=== PATIENT | female | born 1985 | race Caucasian/White ===

== ENCOUNTER 2016-03-21 14:56 | Inpatient (IN) | payer OTHER ==
[~2016-03-21] VITALS: Ht 165.1 cm; Wt 122.1 kg
[2016-03-21 15:12] VITALS: Ht 165.1 cm; Wt 122.1 kg
[2016-03-21] MEDS ORDERED: GLYB1.252 PO (15:14)
[2016-03-21] MEDS ORDERED: TAP5 PO (15:25)
[2016-03-21] MEDS ORDERED: METHYLERGONOVINE 0.2 MG INJ IM PRN (15:30)
[2016-03-21] MEDS ORDERED: CARBOPROST 250 MCG INJ IM PRN (15:30)
[2016-03-21] MEDS ORDERED: MISOPROSTOL 200 MCG TAB PR PRN (15:30)
[2016-03-21] MEDS ORDERED: OXYTOCIN 30 UNITS/LR 500 ML IV PRN (15:30)
[2016-03-21] MEDS ORDERED: LACTATED RINGER'S 1,000 ML IV SCH (15:59)
[2016-03-21 16:00] VITALS: BP 140/81; PULSE 72; RESP 18
[2016-03-21 16:03] LABS: EOSINOPHILS # 0.1 10^3/ul (0.0-0.5); EOSINOPHILS % 0.7 % (0.0-7.0); HEMATOCRIT 41.9 % (37.0-47.0); HEMOGLOBIN 14.5 g/dl (12.0-16.0); LYMPHOCYTES # 2.6 10^3/ul (0.8-2.9); LYMPHOCYTES % 25.2 % (15.0-51.0); MEAN CORPUSCULAR HGB CONC 34.6 g/dl (32.0-37.0); MEAN CORPUSCULAR VOLUME 83.7 fl (82.0-101.0); MEAN PLATELET VOLUME 9.2 fl (7.4-10.4); MONOCYTE # 0.6 10^3/ul (0.3-0.9); MONOCYTES % 5.9 % (0.0-11.0); NEUTROPHIL # 7.1 10^3/ul (1.6-7.5); NEUTROPHILS % 68.2 % (39.0-77.0); PLATELET COUNT 179 10^3/UL (140-440); RED BLOOD COUNT 5.01 10^6/ul (4.20-5.40); RED CELL DISTRIBUTION WIDTH 14.4 % (11.5-14.5); UNCORRECTED WBC 10.4 10^3/ul (4.8-10.8); WHITE BLOOD COUNT 10.4 10^3/ul (4.8-10.8)
[2016-03-21 16:05] LABS: CONDITION 1
[2016-03-21 16:13] LABS: INR 0.92; PARTIAL THROMBOPLASTIN TIME 28.1 Sec (25.0-35.0); PROTIME 12.4 Sec (12.2-14.2)
[2016-03-21] MEDS ORDERED: DEXTROSE 5%-LR 1,000 ML IV SCH (16:23)
[2016-03-21] MEDS ORDERED: AMPICILLIN 2 GM/NS (PMX) 100 ML ONE (16:30)
[2016-03-21] MEDS ORDERED: AMPICILLIN 2 GM/NS (PMX) 100 ML IVPB ONE (16:30)
[2016-03-21] MEDS ORDERED: morphine SULFATE/PF (10 MG/10 ML) INJ ONE (16:43)
[2016-03-21] MEDS ORDERED: ONDANSETRON 4 MG INJ IV STA (17:22)
[2016-03-21] MEDS ORDERED: CITRIC ACID/NA CITRATE 30 ML CUP PO ONE (17:30)
[2016-03-21] MEDS ORDERED: METOCLOPRAMIDE 10 MG INJ IM ONE (17:30)
[2016-03-21] MEDS ORDERED: METOCLOPRAMIDE 10 MG INJ IV ONE (18:00)
[2016-03-21 18:02] LABS: ALBUMIN 3.7 g/dl (3.3-4.9); POTASSIUM 4.3 mmol/L (3.5-5.1)
[2016-03-21 18:04] LABS: BILIRUBIN,INDIRECT 0.2 mg/dl (0-1.1); BILIRUBIN,TOTAL 0.2 mg/dl (0.2-1.3); CREATININE 0.52 mg/dl (0.44-1.00)
[2016-03-21 18:05] LABS: CALCIUM 9.5 mg/dl (8.4-10.2); TOTAL PROTEIN 7.4 g/dl (6.1-8.1); URIC ACID 5.4 mg/dl (3.1-7.9)
--- NOTE | 2016-03-21 18:21 | PREOPHP ---
DATE OF ADMISSION: 03/21/2016 HISTORY OF PRESENT ILLNESS: A 30-year-old female 1, para 0, estimated delivery 04/02/2016 at 38 weeks and 2 days is admitted for primary section due to twin . PAST MEDICAL HISTORY: Hyperthyroidism. COURSE: Significant for twin and gestational diabetes. FAMILY HISTORY: Hypothyroidism. ALLERGIES: NO KNOWN ALLERGIES. PHYSICAL EXAMINATION: VITAL SIGNS: The patient is afebrile. Vital signs stable. HEAD, NECK, AND CHEST: Within normal limits. ABDOMEN: Soft, nontender, and gravid. EXTREMITIES: Within normal limits. NEUROLOGIC: Within normal limits. IMPRESSION: 1. at 38 weeks and 2 days with twins. 2. Gestational diabetes. 3. Hyperthyroidism. PLAN: Delivery by primary section. Risks, benefits, and alternatives of procedure were explained to the patient. The patient said she understood and gave informed consent for the procedure. Dictated By: AMELIE FLOWERS/GINA Conf#: [id number] DID#: [id number]
[2016-03-21] MEDS ORDERED: PHENYLephrine (100 MCG/ML) 5ML SYG ONE (18:30)
[2016-03-21] MEDS ORDERED: METOCLOPRAMIDE 10 MG INJ ONE (18:31)
[2016-03-21] MEDS ORDERED: OXYTOCIN 10 UNIT INJ ONE ×2 (18:31)
[2016-03-21] MEDS ORDERED: ONDANSETRON 4 MG INJ ONE (18:31)
[2016-03-21] MEDS ORDERED: KETOROLAC 30 MG INJ ONE (18:32)
[2016-03-21] MEDS ORDERED: DEXAMETHASONE 4 MG/ML 1 ML INJ ONE (18:32)
[2016-03-21] MEDS ORDERED: MEPERIDINE 100 MG INJ ONE (18:52)
[2016-03-21] MEDS ORDERED: morphine (1 MG/ML) 10ML SYRINGE IV PRN ×3 (19:30)
[2016-03-21] MEDS ORDERED: ONDANSETRON 4 MG INJ IV PRN (19:30)
[2016-03-21] MEDS ORDERED: NALBUPHINE HCL (10 MG/1 ML) INJ IV PRN (19:30)
[2016-03-21] MEDS ORDERED: ALBUMIN HUMAN 5% 250 ML IV PRN (19:30)
[2016-03-21] MEDS ORDERED: HYDROmorphONE 1 MG/ML SYG IV PRN ×2 (19:30)
[2016-03-21] MEDS ORDERED: DIPHENHYDRAMINE 50 MG INJ IV PRN ×2 (19:30)
[2016-03-21] MEDS ORDERED: morphine 4 MG/ML VIAL IV PRN (19:30)
[2016-03-21] MEDS ORDERED: HYDROmorphONE (0.2 MG/ML) 10ML SYG IV PRN ×3 (19:30)
[2016-03-21] MEDS ORDERED: HYDROCODONE/APAP (5/325) TAB PO PRN (19:30)
[2016-03-21] MEDS ORDERED: EPHEDrine SULFATE 50 MG/5 ML SYG IV PRN (19:30)
[2016-03-21] MEDS ORDERED: NALOXONE (0.4 MG/ML) INJ IV PRN (19:30)
[2016-03-21] MEDS ORDERED: morphine 2 MG INJ IV PRN (19:30)
[2016-03-21] MEDS ORDERED: MEPERIDINE 25 MG INJ IV PRN (19:30)
[2016-03-21] MEDS ORDERED: ACETAMINOPHEN 500 MG TAB PO PRN (19:30)
[2016-03-21] MEDS: CEFAZOLIN 2 GM/50 ML (PMX) 50 ML IV SCH ×2 (19:34→20:53)
--- NOTE | 2016-03-21 19:51 | OPR ---
DATE OF OPERATION: 03/21/2016 PREOPERATIVE DIAGNOSES: at 38 weeks and 2 days with twins, gestational diabetes, hyperthy roidism. POSTOPERATIVE DIAGNOSES: at 38 weeks and 2 days with twins, gestational diabetes, hyperth yroidism. OPERATION PERFORMED: Primary low transverse section. SURGEON: Amelie Angel MD POWER SWEEPER OPERATOR: Megan Meza MD ANESTHESIA: Spinal. ANESTHESIOLOGIST: Rayshawn Stein MD PROCEDURE: The patient was taken to the operating room and placed on the operating table. After bautista ccessful spinal anesthesia was given, the patient was placed in supine position. The area was prepa red and draped in the usual sterile fashion. Spinal anesthesia was tested and was satisfactory. Us ing a scalpel, Pfannenstiel incision was made about 2 fingerbreadths above the symphysis pubis. The incision was carried to the fascia. The fascia was incised and extended bilaterally with Gore scis sors. Two Kiki's were used to separate the fascia from the muscle. The muscle was dissected down to peritoneum. The peritoneum was bluntly entered. Using a scalpel, a transverse incision was mad e in the lower segment of the uterus. Upon entering the uterine cavity, bandage scissors were inser davon to extend the incision bilaterally, curved up. Twin A baby boy was delivered from cephalic pres entation. After suctioning clear of amniotic fluid, the baby was handed off to the team in attendance. Apgars were 8 and 9. Twin B baby boy was delivered from cephalic presentation. After suctioning clear of amniotic fluid, the baby was handed off to the team in attendance. Ap gars were 9 and 9. The placenta was delivered without difficulty. The uterus was closed with #1 Mo nocryl continuous locked. After assuring hemostasis, both ovaries and tubes were inspected, all loo ked normal. The peritoneal cavity was irrigated with warm saline. The peritoneum was closed with 2 -0 Vicryl continuous. The fascia was closed with #1 Vicryl continuous in 2 segments. Subcutaneous tissue was reapproximated with 2-0 chromic. The skin was closed with kendall. ESTIMATED BLOOD LOSS: 800 mL. COMPLICATIONS: None. COUNTS: All counts were correct. Dictated By: AMELIE ANGEL MD GD/NTS Conf#: [id number] [facility]#: [id number]
[2016-03-21 21:47] LABS: ADD UMIC YES; URINE BILIRUBIN (Dip) NEGATIVE (NEGATIVE); URINE BLOOD (Dip) 1+ (NEGATIVE); URINE COLOR LT. YELLOW (YELLOW); URINE GLUCOSE (Dip) NEGATIVE (NEGATIVE); URINE KETONES (Dip) 15 (NEGATIVE); URINE LEUKOCYTE ESTERASE (Dip) NEGATIVE (NEGATIVE); URINE NITRITE (Dip) NEGATIVE (NEGATIVE); URINE TOTAL PROTEIN (Dip) NEGATIVE (NEGATIVE); URINE UROBILINOGEN (Dip) 0.2 E.U./dL (0.1-1.0)
[2016-03-21 21:56] LABS: SQUAMOUS EPITHELIAL CELL,UR FEW
--- NOTE | 2016-03-22 00:20 | DELSUM ---
Delivery Summary A-C Datetime Report Generated by CPN: 03/22/2016 00:20 DELIVERY PERSONNEL Host/Hostess Head: Delgadillo, Delfina MATERNAL INFORMATION Delivery Anesthesia: Spinal Medications in Delivery: SEE ANES. RECORDS Estimated Blood Loss (ml): 800 Placenta Cultured: Yes Maternal Complications: Other Other Maternal Complications: A2DM; HYPERTHYROIDISM LABOR SUMMARY EDC: 04/02/2016 00:00 No. Babies in Womb: 2 Attempted: No Labor Anesthesia: Intrathecal LABOR INFORMATION Reason for Induction: Not Applicable Oxytocin: N/A Group B Beta Strep: Positive Antibiotics # of Doses: 2 Antibiotics Time of Last Dose: 181 Steroids Given: None Reason Steroids Not Administered: Not Applicable MEMBRANES Membranes Rupture Method: Artificial Rupture of Membranes: 03/21/2016 18:40 Length of Rupture (hr): 0.02 Amniotic Fluid Color: Clear Amniotic Fluid Amount: Moderate Amniotic Fluid Odor: None STAGES OF LABOR Stage 3 hr: 0 Stage 3 min: 4 CSECTION DELIVERY Primary Indication: Multiple Gestation Secondary Indication: N/A CSection Urgency: Elective CSection Incidence: Primary Labor: No Labor Elective: N/A CSection Incision: Lower Uterine Transverse BABY A INFORMATION Infant Delivery Date/Time: 03/21/2016 18:41 Method of Delivery: Born in Route : No : N/A Forceps: N/A Vacuum Extraction: N/A Shoulder Dystocia : N/A SHOULDER DYSTOCIA BABY A Infant Delivery Date/Time: 03/21/2016 18:41 PRESENTATION/POSITION BABY A Presentation: Cephalic Cephalic Presentation: Vertex Breech Presentation: N/A PLACENTA INFORMATION BABY A Placenta Delivery Time : 03/21/2016 18:45 Placenta Method of Delivery: Manual Removal Placenta Status: Delivered SCORES BABY A Heart Rate 1 min: >100 bpm Resp Effort 1 min: Good Cry Reflex Irritability 1 min: Cough/Sneeze/Pulls Away Muscle Tone 1 min: Active Motion Color 1 min: Blue/Pale Resuscitation Effort 1 min: Tactile Stimulation SCORE 1 MIN: 8 Heart Rate 5 min: >100 bpm Resp Effort 5 min: Good Cry Reflex Irritability 5 min: Cough/Sneeze/Pulls Away Muscle Tone 5 min: Active Motion Color 5 min: Body [place], Extremit Blue Resuscitation Effort 5 min: Tactile Stimulation SCORE 5 MIN: 9 INFANT INFORMATION BABY A Gestational Age at Delivery: 38.2 Gestational Status: Early Term- 37- 38.6 Weeks Infant Outcome : Liveborn Condition : Stable Sex: Male IDENTIFICATION/MEDS BABY A ID Band Number: [id number] ID Band Location: Right Leg; Left Arm Sensor Applied: Yes Sensor Number: [id number] Sensor Location : Cord Clamp Vitamin K Given : Not Given Erythromycin Given: Not Given WEIGHT/LENGTH BABY A Infant Birthweight (gm): 3010 Weight (lb): 6 Infant Weight (oz): 10 Infant Length (in): 18.50 Infant Length (cm): 46.99 CORD INFORMATION BABY A No. Cord Vessels: 3 Nuchal Cord : Around Neck x1, Loose Cord Blood Taken: Yes Infant Suction: Mouth; Nose; Pharynx ASSESSMENT BABY A Infant Complications: None Physical Findings at Delivery: Within Normal Limits Respirations: Appears Normal Director Of Training/ALS Called : No Infant Care By: NICU TEAM Transferred To: Remains with Mother BABY B INFORMATION Infant Delivery Date/Time: 03/21/2016 18:42 Method of Delivery : Born in Route : No : N/A Forceps : N/A Vacuum Extraction: N/A Shoulder Dystocia : N/A SHOULDER DYSTOCIA BABY B Delivery Date/Time: 03/21/2016 18:42 PRESENTATION/POSITION BABY B Presentation : Cephalic Cephalic Position : Vertex Breech Position: N/A ROM/PLACENTA INFO BABY B Rupture of Membranes: 03/21/2016 18:42 Length of Rupture (hr): 0.00 Placenta Delivery Time : 03/21/2016 18:45 Placenta Method of Delivery: Manual Removal Placental Status : Delivered SCORES BABY B Heart Rate 1 min: >100 bpm Resp Effort 1 min: Good Cry Reflex Irritability 1 min: Cough/Sneeze/Pulls Away Muscle Tone 1 min: Active Motion Color 1 min: Body [place], Extremit Blue Resuscitation Effort 1 min: Tactile Stimulation SCORE 1 MIN: 9 Heart Rate 5 min: >100 bpm Resp Effort 5 min: Good Cry Reflex Irritability 5 min: Cough/Sneeze/Pulls Away Muscle Tone 5 min: Active Motion Color 5 min: Body [place], Extremit Blue Resuscitation Effort 5 min: Tactile Stimulation SCORE 5 MIN: 9 INFORMATION BABY B Gestational Age at Delivery: 38.2 Gestational Status : Early Term- 37- 38.6 Weeks Outcome : Liveborn Condition : Stable Sex : Male IDENTIFICATION/MEDS BABY B ID Band Number : [id number] ID Band Location : Right Leg; Left Arm Sensor Applied: Yes Sensor Number : [id number] Sensor Location : Cord Clamp Vitamin K Given : Not Given Erythromycin Given : Not Given WEIGHT/LENGTH BABY B Infant Birthweight (gm): 2905 Infant Weight (lb) : 6 Weight (oz): 6 Infant Length (in): 18.50 Length (cm): 46.99 CORD INFORMATION BABY B No. Cord Vessels : 3 Nuchal Cord : N/A Cord Blood Taken : Yes Infant Suction : Mouth; Nose ASSESSMENT BABY B Complications : None Physical Findings at Delivery: Within Normal Limits Infant Respirations : Appears Normal Director Of Training/ALS Called : No Care By : MANJULA LOPEZripening room attendant To: Remains with Mother
[2016-03-22] MEDS ORDERED: CARBOPROST 250 MCG INJ IM PRN (01:00)
[2016-03-22] MEDS ORDERED: MISOPROSTOL 200 MCG TAB PR PRN (01:00)
[2016-03-22] MEDS ORDERED: LANOLIN 7 GM TUBE TOP PRN (01:00)
[2016-03-22] MEDS ORDERED: OXYTOCIN 30 UNITS/LR 500 ML IV PRN (01:00)
[2016-03-22] MEDS ORDERED: METHYLERGONOVINE 0.2 MG INJ IM PRN (01:00)
[2016-03-22] MEDS: OXYTOCIN 30 UNITS/LR 500 ML IV SCH ×2 (03:01→04:35)
[2016-03-22 04:04] VITALS: BP 112/69; PULSE 88; RESP 18
[2016-03-22] MEDS: LACTATED RINGER'S 1,000 ML IV SCH ×3 (06:54→14:55)
[2016-03-22 07:59] LABS: BASOPHILS % 0.1 % (0.0-2.0); EOSINOPHILS % 0.2 % (0.0-7.0); HEMATOCRIT 35.8 % (37.0-47.0); HEMOGLOBIN 12.5 g/dl (12.0-16.0); LYMPHOCYTES # 1.7 10^3/ul (0.8-2.9); LYMPHOCYTES % 12.6 % (15.0-51.0); MEAN CORPUSCULAR HEMOGLOBIN 29.5 pg (29.0-33.0); MEAN CORPUSCULAR VOLUME 84.3 fl (82.0-101.0); MEAN PLATELET VOLUME 9.6 fl (7.4-10.4); MONOCYTE # 0.7 10^3/ul (0.3-0.9); MONOCYTES % 5.4 % (0.0-11.0); NEUTROPHIL # 11.2 10^3/ul (1.6-7.5); NEUTROPHILS % 81.7 % (39.0-77.0); PLATELET COUNT 170 10^3/UL (140-440); RED BLOOD COUNT 4.24 10^6/ul (4.20-5.40); RED CELL DISTRIBUTION WIDTH 14.3 % (11.5-14.5); UNCORRECTED WBC 13.7 10^3/ul (4.8-10.8); WHITE BLOOD COUNT 13.7 10^3/ul (4.8-10.8)
[2016-03-22 08:00] VITALS: BP 98/53; PULSE 72; RESP 18
[2016-03-22 08:03] LABS: CONDITION 1
[2016-03-22] MEDS: SENNA/DOCUSATE NA (8.6MG/50MG) TAB PO SCH ×2 (09:27→21:12)
[2016-03-22] MEDS: METHIMAZOLE 5 MG TAB PO SCH (09:27)
[2016-03-22 12:30] VITALS: BP 98/54; PULSE 65; RESP 18
[2016-03-22] MEDS: KETOROLAC 30 MG INJ IV PRN ×2 (12:30→17:46)
[2016-03-22 16:00] VITALS: BP_SYST 109; BP_SYST 121; BP_DIAS 64; BP_DIAS 69; PULSE 70; PULSE 78; RESP 18
[2016-03-22] MEDS ORDERED: OXYCODONE/ACETAMINOPHEN (5/325) TAB PO PRN (18:00)
[2016-03-22 20:00] VITALS: BP 105/56; PULSE 72; RESP 18
[2016-03-22] MEDS: IBUPROFEN 800 MG TAB PO SCH (22:00)
--- NOTE | 2016-03-22 22:01 | CONS ---
Date/Time of Note Date/Time of Note DATE: 03/22/16 TIME: 21:57 Consultation Date/Type/Reason Admit Date/Time Mar 21, 2016 at 14:56 Initial Consult Date 03/21/16 Type of Consultation: Anesthesia Reason for Consultation Twin for Elective 24 HR Interval Summary Free Text/Dictation Patient is a 30 year old female with Twin scheduled for Elective C- Section. Spinal anesthesia was used and intrathecal Duramorph was given for post -op pain control. Patient is doing well, pain is well controlled, no itching nausea or vomiting. No apnea reported. No sensory or motor deficit. Vital signs are stable and patient is afebrile. Patient will be followed up by her primary team. Exam/Review of Systems Vital Signs Vitals Vital Signs Date Time Temp Pulse Resp B/P Pulse Ox O2 Delivery O2 Flow Rate FiO2 03/22/16 16:00 98.7 78 18 109/69 Room Air 03/22/16 15:10 97 21 Intake and Output 03/21/16 03/21/16 03/22/16 15:00 23:00 07:00 Intake Total 625 ml 500 ml Output Total 250 ml Balance 375 ml 500 ml Results Result Diagram: 03/22/16 0635 03/21/16 1530 Results 24 hrs Laboratory Tests Test 03/22/16 06:35 Basophils # 0.0 Basophils % 0.1 Eosinophils # 0.0 Eosinophils % 0.2 Hematocrit 35.8 L Hemoglobin 12.5 Lymphocytes # 1.7 Lymphocytes % 12.6 L Mean Corpuscular Hemoglobin 29.5 Mean Corpuscular Hemoglobin Concent 35.0 Mean Corpuscular Volume 84.3 Mean Platelet Volume 9.6 Monocytes # 0.7 Monocytes % 5.4 Neutrophils # 11.2 H Neutrophils % 81.7 H Nucleated Red Blood Cells # 0.0 Nucleated Red Blood Cells % 0.0 Platelet Count 170 Red Blood Count 4.24 Red Cell Distribution Width 14.3 White Blood Count 13.7 #H Medications Medications Current Medications Lactated Ringer's (Lr) 1,000 ml @ 125 mls/hr Q8H IV Last administered on t 14:55; Admin Dose 125 MLS/HR; Start 03/22/16 at 00:35 Oxycodone/ Acetaminophen (Percocet (5/ 325)) 1 tab Q4H PRN PO PAIN LEVEL 4-6; Start 03/22/16 at 18:00 Oxycodone/ Acetaminophen (Percocet (5/ 325)) 2 tab Q4H PRN PO PAIN LEVEL 7-10; Start 03/22/16 at 18:00 Ibuprofen (Motrin) 800 mg Q8 PO ; Start 03/22/16 at 22:00 Simethicone (Mylicon) 160 mg Q8H PRN PO DISTENSION/GAS/BLOATING; Start 03/22/16 at 01:00 Senna/Docusate Sodium (Senokot-S) 1 tab BID PO Last administered on 03/22/16 21 :12; Admin Dose 1 TAB; Start 03/22/16 at 09:00 Diphtheria/ Tetanus/Acell Pertussis 0.5 ml 0.5 ml ONCE ONCE IM* ; Start 03/24/16 at 09:00; Stop 03/24/16 at 09:01 Oxytocin/Lactated Ringer's 500 ml @ 0 mls/hr ONCE PRN IV For Hemorrhage Management; Start 03/22/16 at 01:00 Methylergonovine Maleate (Methergine) 0.2 mg ONCE PRN IM VAGINAL BLEEDING; Start 03/22/16 at 01:00 Carboprost Tromethamine (Hemabate) 250 mcg ONCE PRN IM VAGINAL BLEEDING; Start 03/22/16 at 01:00 Misoprostol (Cytotec) 1,000 mcg ONCE PRN IL VAGINAL BLEEDING; Start 03/22/16 at 01:00 Methimazole (Tapazole) 5 mg DAILY PO Last administered on 03/22/16 09:27; Admin Dose 5 MG; Start 03/22/16 at 09:00 MARTI MOSQUEDA MD Mar 22, 2016 22:01
--- NOTE | 2016-03-22 23:03 | PN ---
Date/Time of Note Date/Time of Note DATE: 03/22/16 TIME: 23:00 OB Subjective Subjective Subjective No complaint. OB Objective Objective Objective Afebrile VSS Abdomen: WNL OB Assessment/Plan Reason for admission: other Other Assessment: POD #1 Stable Other plan: Ambulate Advance diet. AMELIE AGUAYO MD Mar 22, 2016 23:03
[2016-03-22] MEDS: OXYCODONE/ACETAMINOPHEN (5/325) TAB PO PRN (23:33)
[2016-03-23] MEDS: OXYCODONE/ACETAMINOPHEN (5/325) TAB PO PRN ×3 (03:27→19:58)
[2016-03-23 04:00] VITALS: BP 112/65; PULSE 72; RESP 18
[2016-03-23] MEDS: IBUPROFEN 800 MG TAB PO SCH ×3 (06:40→22:00)
[2016-03-23 08:15] VITALS: BP 107/52; PULSE 69
[2016-03-23] MEDS: METHIMAZOLE 5 MG TAB PO SCH (09:58)
[2016-03-23] MEDS: SENNA/DOCUSATE NA (8.6MG/50MG) TAB PO SCH ×2 (09:58→19:58)
[2016-03-23 15:45] VITALS: BP 112/68; PULSE 77; RESP 18
--- NOTE | 2016-03-23 19:45 | QN ---
Documentation Comment No complaint. Afebrile VSS Abdomen soft POD #2 Stable Continue present care. AMELIE AGUAYO MD Mar 23, 2016 19:44
[2016-03-23 20:00] VITALS: BP 118/75; PULSE 83; RESP 18
[2016-03-24] MEDS: OXYCODONE/ACETAMINOPHEN (5/325) TAB PO PRN ×3 (01:26→13:54)
--- NOTE | 2016-03-24 03:54 | DS ---
DATE OF ADMISSION: 03/21/2016 DATE OF DISCHARGE: 03/24/2016 ADMITTING DIAGNOSES: at 38 weeks and 2 days with twins, gestational diabetes and hyperthy roidism. HISTORY: A 30-year-old female 1, para 0 at the time of admission, para 1-0-0-2, at the time of discharge, at 38 weeks and 2 days, was admitted for primary section due to her twin int rauterine . On 03/21/2016, after obtaining informed consent, the patient underwent a prima ry low transverse section. Patient's operation was uncomplicated. Postoperatively, the pa tient was given a clear liquid diet, which was advanced to a regular diet, which she tolerated well. The patient is discharged on postop day #3 after having had adequate bladder and bowel function. CONDITION ON DISCHARGE: Stable. DISCHARGE INSTRUCTIONS DIET: Regular. ACTIVITIES: Pelvic rest and no strenuous activities. MEDICATIONS: 1. Motrin as needed for pain. 2. Continue with vitamins and ferrous sulfate. FOLLOWUP: In the office in 1 week. FINAL DIAGNOSES 1. Term delivered by section. 2. Twin . 3. Gestational diabetes. 4. Hyperthyroidism. 5. Mother with twin liveborns. Dictated By: AMELIE FLOWERS/GINA Conf#: [id number] DID#: [id number]
[2016-03-24 04:00] VITALS: BP 125/68; PULSE 77; RESP 18
[2016-03-24] MEDS: IBUPROFEN 800 MG TAB PO SCH ×2 (06:31→13:54)
[2016-03-24] MEDS: METHIMAZOLE 5 MG TAB PO SCH (07:52)
[2016-03-24 08:00] VITALS: BP 117/76; PULSE 68; RESP 17
[2016-03-24] MEDS ORDERED: DIPHTH/TET/ACEL PERTUSS (ADULT) 0.5 ML VIAL IM* ONE (09:00)
[2016-03-24] MEDS: SENNA/DOCUSATE NA (8.6MG/50MG) TAB PO SCH (10:38)
--- NOTE | 2016-03-27 17:44 | NSTRPT ---
NST Information Datetime Report Generated by CPN: 03/27/2016 17:44 Datetime: 03/20/2016 13:25 NST Information EGA: 38.1 NST Duration (Min): 38 Datetime: 03/16/2016 13:32 NST Information EGA: 37.4 NST Duration (Min): 67 Datetime: 03/13/2016 11:09 NST Information EGA: 37.1 NST Duration (Min): 28 Datetime: 03/10/2016 12:57 NST Information EGA: 36.5 NST Duration (Min): 22 Electronically Signed By E-Signature: with User ID: [id number], Addendum/Amendment: Twins meet minimal criteria for reactivity on a relatively short FHT record Datetime: 03/07/2016 13:20 NST Information EGA: 36.2 NST Duration (Min): 38 Datetime: 03/03/2016 13:03 NST Information EGA: 35.5 NST Duration (Min): 26 Datetime: 02/29/2016 13:24 NST Information EGA: 35.2 NST Duration (Min): 38 Datetime: 02/24/2016 13:31 NST Information EGA: 34.4 NST Duration (Min): 35 Datetime: 02/22/2016 13:37 NST Information EGA: 34.2 NST Duration (Min): 44 Datetime: 02/18/2016 13:48 NST Information EGA: 33.5 NST Duration (Min): 59 Datetime: 02/16/2016 13:47 NST Information EGA: 33.3 NST Duration (Min): 52 Datetime: 02/10/2016 13:38 NST Information EGA: 32.4 NST Duration (Min): 40 Datetime: 02/07/2016 13:42 NST Information EGA: 32.1 Datetime: 02/07/2016 13:37 NST Duration (Min): 60
== END 2016-03-24 17:34 | disposition home or self-care (01) | DRG 765 ==
LOC: L-D 14:56 → PP1 03-22 00:15
PROVIDERS: ADMIT Obstetrics & Gynecology; ATTEND Obstetrics & Gynecology
PROC: 10D00Z1 Extraction of Products of Conception, Low, Open Approach (ICD-10-PCS; principal; 2016-03-21 17:00)
DX: O24.429 Gestational diabetes mellitus in childbirth, unspecified control (principal); O30.003 Twin pregnancy, unspecified number of placenta and unspecified number of amniotic sacs, third trimester; O99.284 Endocrine, nutritional and metabolic diseases complicating childbirth; Z3A.38 38 weeks gestation of pregnancy; Z37.0 Single live birth
CPT/HCPCS: 80053; 81001; 81003; 82947; 84560; 85025; 85610; 85730; 86592; 86850; 86900; 86901; 88307; 90715; 94760; 99464; J0290; J0690; J1100; J1885; J2175; J2274; J2370; J2405; J2590; J2765; J7120; J7121